=== PATIENT | female | born 1990 | race Caucasian/White ===

== ENCOUNTER 2018-06-21 04:45 | Emergency (ER) | payer SELFPAY ==
[2018-06-21 04:53] VITALS: TEMP 98.7; O2SAT 100
--- NOTE | 2018-06-21 05:22 | ED PDOC ---
Arrival/HPI - General Chief Complaint: Dental Pain Time Seen by Provider: 06/21/18 05:14 Historian: Patient - History of Present Illness Narrative History of Present Illness (Text): 06/21/18 05:19 27 year old female, with no significant past medical history, presents to the emergency department with tooth pain, for 2 days. Patient informs the pain is coming from her right lower molar. Patient informs that the tooth his cracked. Patient states she has an appointment with her dentist in 2 days, but the pain was too much. Patient denies any headache, dizziness, abdominal pain, nausea, vomiting, diarrhea, back pain, neck pain, urinary/bowel changes, or any other complaints. Time/Duration: < week (2 days) Quality: Aching Past Medical History - Provider Review Nursing Documentation Reviewed: Yes - Infectious Disease Hx of Infectious Diseases: None - Psychiatric Hx Substance Use: Yes - Surgical History Other/Comment: I&D breast abscess Family/Social History - Physician Review Nursing Documentation Reviewed: Yes Family/Social History: No Known Family HX Smoking Status: Heavy Smoker > 10 Cigarettes Daily Hx Alcohol Use: Yes Frequency of alcohol use: Socially Hx Substance Use: Yes Substance used: marijuana Allergies/Home Meds Allergies/Adverse Reactions: Allergies No Known Allergies Allergy (Verified 06/21/18 04:51) Review of Systems - Physician Review All systems were reviewed & negative as marked: Yes - Review of Systems ENT: Other (Tooth Pain) Gastrointestinal: absent: Abdominal Pain, Diarrhea, Nausea, Vomiting Genitourinary Female: absent: Urine Output Changes Musculoskeletal: absent: Back Pain, Neck Pain Neurological: absent: Headache, Dizziness Physical Exam Vital Signs Reviewed: Yes Vital Signs Temp Pulse Resp BP Pulse Ox 06/21/18 04:52 98.7 F 88 18 140/87 100 Temperature: Afebrile Blood Pressure: Normal Pulse: Regular Respiratory Rate: Normal Appearance: Positive for: Well-Appearing, Non-Toxic, Comfortable Pain Distress: None Mental Status: Positive for: Alert and Oriented X 3 - Systems Exam Head: Present: Atraumatic, Normocephalic Pupils: Present: PERRL Extroacular Muscles: Present: EOMI Conjunctiva: Present: Normal Mouth: No: Normal Teeth (Cracked right lower first molar) Neck: Present: Normal Range of Motion Respiratory/Chest: Present: Clear to Auscultation, Good Air Exchange. No: Respiratory Distress, Accessory Muscle Use Cardiovascular: Present: Regular Rate and Rhythm, Normal S1, S2. No: Murmurs Abdomen: No: Tenderness, Distention, Peritoneal Signs Back: Present: Normal Inspection Upper Extremity: Present: Normal Inspection. No: Cyanosis, Edema Lower Extremity: Present: Normal Inspection. No: Edema Neurological: Present: GCS=15, CN II-XII Intact, Speech Normal Skin: Present: Warm, Dry, Normal Color. No: Rashes Psychiatric: Present: Alert, Oriented x 3, Normal Insight, Normal Concentration Medical Decision Making ED Course and Treatment: 06/21/18 05:24 Impression: 27 year old female presents with tooth pain. Plan: -- Amoxicillin -- Toradol -- Reassess and disposition Progress Notes: - Scribe Statement The provider has reviewed the documentation as recorded by the Saludibluis antonio Pedro Provider Scribe Attestation: All medical record entries made by the Scribe were at my direction and personally dictated by me. I have reviewed the chart and agree that the record accurately reflects my personal performance of the history, physical exam, medical decision making, and the department course for this patient. I have also personally directed, reviewed, and agree with the discharge instructions and disposition. Disposition/Present on Arrival - Present on Arrival Any Indicators Present on Arrival: No History of DVT/PE: No History of Uncontrolled Diabetes: No Urinary Catheter: No History of Decub. Ulcer: No History Surgical Site Infection Following: None - Disposition Have Diagnosis and Disposition been Completed?: Yes Diagnosis: Pain, dental Disposition: HOME/ ROUTINE Disposition Time: 05:47 Condition: IMPROVED Discharge Instructions (ExitCare): Dental Pain (DC) Prescriptions: RX: Amoxicillin 875 mg PO BID #14 tab oxyCODONE/Acetaminophen [Percocet 5/325 mg Tab] 1 ea PO QID #6 tab Referrals: Virginie Bullock MD [Medical Doctor] - Follow up with primary Forms: [employer] (Slovenian)
[2018-06-21] MEDS ORDERED: Oxycodone/Acetaminophen 5/325 mg Tab PO STA (05:50)
[2018-06-21 05:57] VITALS: BP 140/86; PULSE 82; RESP 16
== END 2018-06-21 05:56 | disposition home or self-care (01) ==
LOC: MERGE 04:45 → ED 04:45
DX: K08.89 Other specified disorders of teeth and supporting structures (principal); F17.210 Nicotine dependence, cigarettes, uncomplicated
CPT/HCPCS: 96372; 99282; J1885

== ENCOUNTER 2018-09-01 22:13 | Emergency (ER) | payer SELFPAY ==
[2018-09-01 22:33] VITALS: TEMP 98.7; BMI 21.4
[2018-09-01] MEDS ORDERED: Tmp-Smz 800 mg-160 mg DS Tab PO STA (23:17)
[2018-09-01] MEDS ORDERED: TDAP Vaccine 0.5 mL Syr IM ONE (23:17)
--- NOTE | 2018-09-01 23:21 | ED PDOC ---
Arrival/HPI - General Chief Complaint: Abnormal Skin Integrity Time Seen by Provider: 09/01/18 22:33 Historian: Patient - History of Present Illness Narrative History of Present Illness (Text): 09/01/18 23:21 28 yo F complaining of bartholin's gland abscess x 1 week, states that she has been placing warm compresses and doing sitz baths, and today the abscess ruptured with pus and blood, she is concerned that she will need antibiotics. Reports no fevers, chills, abdominal pain, urinary symptoms, N/V, has no other complaints. PMD Esha Past Medical History - Infectious Disease Hx of Infectious Diseases: None - Reproductive Menopause: No - Psychiatric Hx Substance Use: No - Surgical History Other/Comment: I&D breast abscess Family/Social History Family/Social History: No Known Family HX Smoking Status: Heavy Smoker > 10 Cigarettes Daily Hx Alcohol Use: Yes Hx Substance Use: No Substance used: marijuana Allergies/Home Meds Allergies/Adverse Reactions: Allergies No Known Allergies Allergy (Verified 09/01/18 22:27) Review of Systems - Review of Systems Constitutional: absent: Fatigue, Fevers Gastrointestinal: absent: Abdominal Pain, Nausea, Vomiting Genitourinary Female: Other (bartholin's gland abscess). absent: Dysuria, Frequency, Hematuria, Vaginal Bleeding, Vaginal Discharge Musculoskeletal: absent: Arthralgias, Back Pain, Neck Pain Skin: absent: Rash, Pruritis, Skin Lesions Physical Exam Vital Signs Temp Pulse Resp BP Pulse Ox 09/01/18 22:24 98.7 F 91 H 20 114/73 99 Temperature: Afebrile Blood Pressure: Normal Pulse: Regular Respiratory Rate: Normal Appearance: Positive for: Well-Appearing, Non-Toxic, Comfortable Pain Distress: None Mental Status: Positive for: Alert and Oriented X 3 - Systems Exam Head: Present: Atraumatic, Normocephalic Pupils: Present: PERRL Extroacular Muscles: Present: EOMI Conjunctiva: Present: Normal Mouth: Present: Moist Mucous Membranes Neck: Present: Normal Range of Motion Genitourinary/Pelvic Exam: Present: Normal External Genitalia, Other (no lesions, no rash, no swelling, no tenderness, no erythema, no bratholin's gland cyst or abscess noted on exam, female EMT Stevie was present during the entire exam.) Back: Present: Normal Inspection Upper Extremity: Present: Normal Inspection. No: Cyanosis, Edema Lower Extremity: Present: Normal Inspection. No: Edema Neurological: Present: GCS=15, CN II-XII Intact, Speech Normal Skin: Present: Warm, Dry, Normal Color. No: Rashes Psychiatric: Present: Alert, Oriented x 3, Normal Insight, Normal Concentration Medical Decision Making ED Course and Treatment: Patient given Tdap IM. Advised to follow up with primary care physician or rn gynecology in 1-2 days without fail. Advised to take medication as prescribed. Return to the emergency room at any time for any new or worsening symptoms. Patient states she fully agrees with and understands discharge instructions. States that she agrees with the plan and disposition. Verbalized and repeated discharge instructions and plan. I have given the patient opportunity to ask any additional questions. - PA / DUTY MANAGER / Resident Statement / has reviewed & agrees with the documentation as recorded. Disposition/Present on Arrival - Present on Arrival Any Indicators Present on Arrival: No History of DVT/PE: No History of Uncontrolled Diabetes: No Urinary Catheter: No History of Decub. Ulcer: No History Surgical Site Infection Following: None - Disposition Have Diagnosis and Disposition been Completed?: Yes Diagnosis: Bartholin's gland abscess Disposition: HOME/ ROUTINE Disposition Time: 23:15 Patient Plan: Discharge Patient Problems: Current Active Problems Problem Status Onset Bartholin's gland abscess Acute Condition: STABLE Discharge Instructions (ExitCare): Bartholin's Gland Cyst Additional Instructions: Thank you for letting us take care of you today. You were treated for bartholin's gland abscess. The emergency medical care you received today was directed at your acute symptoms. If you were prescribed any medication, please fill it and take as directed. It may take several days for your symptoms to resolve. Return to the Emergency Department if your symptoms worsen, do not improve, or if you have any other problems. Please contact your doctor in 2 days for re-evaluation and follow up. Bring any paperwork you were given at discharge with you along with any medications you are taking to your follow up visit. Our treatment cannot replace ongoing medical care by a primary care provider (PCP) outside of the emergency department. Thank you for allowing the [facility] team to be part of your care today. Prescriptions: Sulfamethoxazole/Trimethoprim [Bactrim DS 800 mg-160 mg] 1 tab PO BID #14 tab Referrals: Mayelin Mckenzie MD [Primary Care Provider] - Follow up with primary Forms: [employer] (Japanese), WORK NOTE
[2018-09-02 01:03] VITALS: BP 117/72; PULSE 80; RESP 18; O2SAT 100
== END 2018-09-01 23:40 | disposition home or self-care (01) ==
LOC: ED 22:13
DX: N75.1 Abscess of Bartholin's gland (principal); Z23 Encounter for immunization

== ENCOUNTER 2018-10-14 21:35 | Emergency (ER) | payer SELFPAY ==
[2018-10-14 21:38] VITALS: BMI 20.5
[2018-10-14 22:26] LABS: URINE BILIRUBIN NEGATIVE (NEGATIVE); URINE BLOOD LARGE (NEGATIVE); URINE GLUCOSE (UA) NEGATIVE (NEGATIVE); URINE LEUKOCYTE ESTERASE MODERATE Leu/uL (NEGATIVE); URINE PROTEIN NEGATIVE mg/dL (<30 mg/dL); URINE UROBILINOGEN 0.2 E.U./dL (<1 E.U./dL)
[2018-10-14 22:32] LABS: URINE APPEARANCE CLEAR (CLEAR); URINE COLOR YELLOW (YELLOW); URINE RBC 20 - 25 /hpf (0-2)
[2018-10-14 22:33] LABS: HCG,QUALITATIVE URINE POSITIVE (NEGATIVE)
[2018-10-14 22:42] LABS: BASO # 0.01 K/mm3 (0.0-2.0); BASO % 0.1 % (0.0-3.0); EOS # 0.1 (0.0-0.7); EOS % 0.9 % (1.5-5.0); HEMOGLOBIN 12.9 g/dL (12.0-16.0); MEAN CELL VOLUME 95.6 fl (80.0-105.0); MEAN CORPUSCULAR HEMOGLOBIN 31.9 pg (25.0-35.0); MEAN CORPUSCULAR HGB CONC 33.3 g/dl (31.0-37.0); MEAN PLATELET VOLUME 9.3 fl (7.0-11.0); MONO # 0.5 (0.1-0.6); MONO % 5.9 % (1.0-6.0); RBC 4.05 10^6/uL (3.5-6.1); RED CELL DISTRIBUTION WIDTH 13.6 % (11.5-14.5); WHITE BLOOD COUNT 7.7 10^3/uL (4.5-11.0)
[2018-10-14 22:53] LABS: ALB/GLOB RATIO 1.5 (1.1-1.8); ALBUMIN 4.9 g/dL (3.0-4.8); ALT/SGPT 26 U/L (7-56); AST/SGOT 18 U/L (14-36); BLOOD UREA NITROGEN 11 mg/dL (7-21); CALCIUM 9.9 mg/dL (8.4-10.5); GFR NON-AFRICAN AMERICAN > 60
[2018-10-14 23:09] LABS: INR 1.2; PARTIAL THROMBOPLASTIN TIME 39.6 Seconds (26.9-38.3); PROTHROMBIN TIME 13.3 SECONDS (9.4-12.5)
[2018-10-14] MEDS ORDERED: Sodium Chloride 0.9% 1,000 ML IV STA (23:16)
--- NOTE | 2018-10-14 23:16 | ED PDOC ---
Arrival/HPI - General Chief Complaint: Female Genitourinary Time Seen by Provider: 10/14/18 21:39 Historian: Patient - History of Present Illness Narrative History of Present Illness (Text): 10/14/18 23:13 28yo female with no pmhx who present with complaint of left pelvic pain with intermittent vaginal bleeding x 2weeks. She denies urinary symptoms, nausea, vomiting, diarrhea, constipation, any other complaint. Past Medical History - Provider Review Nursing Documentation Reviewed: Yes - Infectious Disease Hx of Infectious Diseases: None - Reproductive Currently : Yes - Psychiatric Hx Substance Use: Yes - Surgical History Other/Comment: I&D breast abscess Family/Social History - Physician Review Nursing Documentation Reviewed: Yes Family/Social History: Unknown Family HX Smoking Status: Light Smoker < 10 Cigarettes Daily Hx Alcohol Use: Yes Hx Substance Use: Yes Substance used: marijuana Allergies/Home Meds Allergies/Adverse Reactions: Allergies No Known Allergies Allergy (Verified 09/01/18 22:27) Review of Systems - Physician Review All systems were reviewed & negative as marked: Yes - Review of Systems Constitutional: Normal Eyes: Normal ENT: Normal Respiratory: Normal Cardiovascular: Normal Gastrointestinal: Abdominal Pain. absent: Constipation, Diarrhea, Nausea, Vomiting, Hematochezia, Hematemesis Genitourinary Female: Vaginal Bleeding Musculoskeletal: Normal Skin: Normal Neurological: Normal Endocrine: Normal Hemo/Lymphatic: Normal Psychiatric: Normal Physical Exam Vital Signs Reviewed: Yes Vital Signs Temp Pulse Resp BP Pulse Ox 10/14/18 21:41 98.3 F 91 H 18 114/72 100 Temperature: Afebrile Blood Pressure: Normal Pulse: Regular Respiratory Rate: Normal Appearance: Positive for: Well-Appearing, Non-Toxic, Comfortable Pain Distress: None Mental Status: Positive for: Alert and Oriented X 3 - Systems Exam Head: Present: Atraumatic, Normocephalic Pupils: Present: PERRL Extroacular Muscles: Present: EOMI Conjunctiva: Present: Normal Mouth: Present: Moist Mucous Membranes Neck: Present: Normal Range of Motion Respiratory/Chest: Present: Clear to Auscultation, Good Air Exchange. No: Respiratory Distress, Accessory Muscle Use Cardiovascular: Present: Regular Rate and Rhythm, Normal S1, S2. No: Murmurs Abdomen: Present: Normal Bowel Sounds. No: Tenderness, Distention, Peritoneal Signs, Rebound, Guarding, McBurney's Point Tender, Rovsing's Sign Present Back: Present: Normal Inspection Upper Extremity: Present: Normal Inspection. No: Cyanosis, Edema Lower Extremity: Present: Normal Inspection. No: Edema Neurological: Present: GCS=15, CN II-XII Intact, Speech Normal Skin: Present: Warm, Dry, Normal Color. No: Rashes Psychiatric: Present: Alert, Oriented x 3, Normal Insight, Normal Concentration Medical Decision Making ED Course and Treatment: 10/15/18 00:17 Pt presented to ED for stated history. She was not in any distress in ED. Upreg was positive in ED. On discussion of result she notes that she is . States her last was June last year. Labs was reviewed. Beta of 175.56 was noted and she had UTI. She was treated with Keflex. Transvaginal US: GESTATION: No gestation sac is seen. UTERUS: Uterus measures 9.4 x 4.4 cm Retroverted empty uterus is seen. CERVIX: Closed. Unremarkable. OVARIES: Unremarkable. No mass. FREE FLUID: No free fluid. MISCELLANEOUS: Right ovary measures 3 x 2.1 x 2.7 cm. Adjacent to right ovary is a hypoechoic area which may represent an ectopic pregrancy. Correlate with quantitative BHCG and follow up sonography to confirm findings. Left ovary measures 2.8 x 11.5 x 2.6 cm. IMPRESSION: Possible right adnexal ectopic as above. Correlate with quantitative beta HCG, follow up sonography to ascertain findings, and OB consultation. Electronically signed on Oct 14, 2018 11:43:29 PM EST by: Ishmael Love M.D., LIZBETH Certified By [facility] [employer] Trained MRI and CT Specialist 10/15/18 01:[address] Montero. He recommended repeat beta in 48hrs. Notes that beta is low for ectopic . All result was DW the pt. Lab and US reprot was given to the pt and she was strongly advised to f/u with OB or return to ED in 48hrs for a repeat beta. She verbalized understanding of the given instruction. - Lab Interpretations Lab Results: PT 13.3 SECONDS (9.4-12.5) H 10/14/18 22:38 INR 1.20 10/14/18 22:38 APTT 39.6 Seconds (26.9-38.3) H 10/14/18 22:38 Total Bilirubin 0.7 mg/dL (0.2-1.3) 10/14/18 22:38 AST 18 U/L (14-36) 10/14/18 22:38 ALT 26 U/L (7-56) 10/14/18 22:38 Alkaline Phosphatase 45 U/L (38-126) 10/14/18 22:38 Total Protein 8.3 g/dL (5.8-8.3) 10/14/18 22:38 Albumin 4.9 g/dL (3.0-4.8) H 10/14/18 22:38 Globulin 3.4 gm/dL 10/14/18 22:38 Albumin/Globulin Ratio 1.5 (1.1-1.8) 10/14/18 22:38 Urine Color Yellow (YELLOW) 10/14/18 22:18 Urine Appearance Clear (CLEAR) 10/14/18 22:18 Urine pH 6.0 (4.7-8.0) 10/14/18 22:18 Ur Specific Clarence 1.025 (1.005-1.035) 10/14/18 22:18 Urine Protein Negative mg/dL (<30 mg/dL) 10/14/18 22:18 Urine Glucose (UA) Negative mg/dL (NEGATIVE) 10/14/18 22:18 Urine Ketones >=80 mg/dL (NEGATIVE) 10/14/18 22:18 Urine Blood Large (NEGATIVE) H 10/14/18 22:18 Urine Nitrate Negative (NEGATIVE) 10/14/18 22:18 Urine Bilirubin Negative (NEGATIVE) 10/14/18 22:18 Urine Urobilinogen 0.2 E.U./dL (<1 E.U./dL) 10/14/18 22:18 Ur Leukocyte Esterase Moderate Moses/uL (NEGATIVE) H 10/14/18 22:18 Urine RBC 20 - 25 /hpf (0-2) H 10/14/18 22:18 Urine WBC 10 - 15 /hpf (0-6) H 10/14/18 22:18 Ur Epithelial Cells 10 - 12 /hpf (0-5) H 10/14/18 22:18 Urine HCG, Qual Positive (NEGATIVE) 10/14/18 22:18 Urine HCG, Qual Positive (NEGATIVE) 10/14/18 22:18 - RAD Interpretation Radiology Orders: 10/14/18 22:01 OB TRANSVAGINAL [US] Stat Disposition/Present on Arrival - Present on Arrival Any Indicators Present on Arrival: No History of DVT/PE: No History of Uncontrolled Diabetes: No Urinary Catheter: No History of Decub. Ulcer: No History Surgical Site Infection Following: None - Disposition Have Diagnosis and Disposition been Completed?: Yes Diagnosis: Ectopic , Miscarriage, threatened, early Disposition: HOME/ ROUTINE Disposition Time: 00:25 Patient Plan: Discharge Condition: STABLE Discharge Instructions (ExitCare): Threatened Miscarriage, Ectopic (DC) Additional Instructions: Follow up with a CONSUMER RELATIONS COMPLAINT CLERK in 48hrs for a repeat beta Return to ED for any new or worsening symptoms Prescriptions: Cephalexin [Keflex] 500 mg PO TID #21 capsule Referrals: Momo Montero [Medical Doctor] - Follow up with primary Forms: [employer] (Chilean)
[2018-10-15 00:57] VITALS: BP 112/65; PULSE 88; RESP 16; TEMP 98.8; O2SAT 99
--- NOTE | 2018-10-15 16:04 | US ---
Date of service: 10/14/2018 HISTORY: /bleeding COMPARISON: None available. TECHNIQUE: Transabdominal/transvaginal sonographic evaluation of the pelvis performed. FINDINGS: UTERUS: Measures 9.0 x 4.4 x 5.5 cm. Anteverted. No evidence of intrauterine gestation is identified normal in size and appearance. No fibroid or other mass lesion seen. ENDOMETRIUM: Measures 8.6 - 7.2 mm in diameter. Unremarkable. CERVIX: No cervical abnormality identified.3.3 cm RIGHT OVARY: Measures 3.0 x 2.1 x 2.7 cm. No solid mass. Normal flow. . There is a hypoechoic area with questionable cystic component in the para ovarian region medial to the right ovary which measures approximately 1.2 x 1.0 x 1.3 cm.. Ectopic must be considered. LEFT OVARY: Measures 2.8 x 1.5 x 2.6 cm. No solid mass. Normal flow. FREE FLUID: No significant free fluid noted. OTHER FINDINGS: None IMPRESSION: No evidence intrauterine however there is a hypoechoic area with questionable cystic component in the para ovarian region medial to the right ovary which measures approximately 1.2 x 1.0 x 1.3 cm.. Ectopic must be considered therefore recommend follow-up serial serum beta hCGs and serial pelvic ultrasounds. Concordant findings provided by overnight radiology service.
== END 2018-10-15 00:55 | disposition home or self-care (01) ==
LOC: ED 21:35
DX: O00.90 Unspecified ectopic pregnancy without intrauterine pregnancy (principal); O20.0 Threatened abortion